=== PATIENT | female | born 1980 | race Caucasian/White ===

== ENCOUNTER 2017-07-04 17:26 | Emergency (ER) | payer OTHER ==
[~2017-07-04] VITALS: Ht 154.9 cm; Wt 98.3 kg
[~2017-07-04 17:26] MED LIST: ACET325; ADVI200C9; ALL220TA; CLEO300C2; MUCI600T; PARO10TA; PHEN12.5; [UNRECOGNIZED DRUG - REMARK]
[2017-07-04 17:31] VITALS: BP 175/93; PULSE 127; RESP 18; TEMP 99.5; O2SAT 98
[2017-07-04] MEDS ORDERED: ALPR.25 PO (17:51)
[2017-07-04] MEDS ORDERED: PARO20TA2 PO (17:51)
[2017-07-04] MEDS ORDERED: DOXE25CA2 PO (17:51)
[2017-07-04 17:52] VITALS: O2SAT 98
[2017-07-04] MEDS ORDERED: SODIUM CHLORIDE 0.9% FLUSH 10 ML FLUSH IV FLUSH PRN (18:00)
--- NOTE | 2017-07-04 18:07 | RADRPT ---
EXAM DATE/TIME: 07/04/2017 17:53 [facility] COMPARISON: No previous studies available for comparison. INDICATIONS : Short of breath. MEDICAL HISTORY : None. SURGICAL HISTORY : None. ENCOUNTER: Initial ACUITY: 1 day PAIN SCORE: 0/10 LOCATION: Bilateral chest FINDINGS: A single view of the chest demonstrates the lungs to be symmetrically aerated without evidence of mas s, infiltrate or effusion. The cardiomediastinal contours are unremarkable. Osseous structures are intact. CONCLUSION: No acute disease. Frank Dave MD on July 04, 2017 at 18:04 Board Certified Radiologist. This report was verified electronically.
[2017-07-04 18:28] LABS: AUTOMATED NEUTROPHIL # 2.7 TH/MM3 (1.8-7.7); BASOPHIL % 0.5 % (0.0-2.0); EOSINOPHIL # 0.1 TH/MM3 (0-0.4); EOSINOPHIL % 1.7 % (0.0-4.0); HEMATOCRIT 34.7 % (35.0-46.0); HEMOGLOBIN 11.8 GM/DL (11.6-15.3); LYMPH % 36.5 % (9.0-44.0); MEAN CELL VOLUME 81.4 FL (80.0-100.0); MEAN CORPUSCULAR HEMOGLOBIN 27.6 PG (27.0-34.0); MEAN CORPUSCULAR HGB CONC 33.9 % (32.0-36.0); MEAN PLATELET VOLUME 9.6 FL (7.0-11.0); MONO % 11.1 % (0.0-8.0); MONOCYTE # 0.6 TH/MM3 (0-0.9); NEUT % 50.2 % (16.0-70.0); PLATELET COUNT 197 TH/MM3 (150-450); RED BLOOD COUNT 4.27 MIL/MM3 (4.00-5.30); RED CELL DISTRIBUTION WIDTH 12.7 % (11.6-17.2); WHITE BLOOD COUNT 5.4 TH/MM3 (4.0-11.0)
[2017-07-04 18:35] LABS: CHLORIDE 104 MEQ/L (98-107); SODIUM (NA) 137 MEQ/L (136-145)
[2017-07-04 18:38] LABS: CALCIUM 9.2 MG/DL (8.5-10.1)
[2017-07-04 18:39] LABS: BICARBONATE 24.3 MEQ/L (21.0-32.0); BLOOD UREA NITROGEN 19 MG/DL (7-18); GLUCOSE,RANDOM 99 MG/DL (74-106)
[2017-07-04 18:42] LABS: ALT (GPT) 38 U/L (10-53); AST (GOT) 23 U/L (15-37); CREATININE 0.51 MG/DL (0.50-1.00); GLOMERULAR FILTRATION RATE 135 ML/MIN (>89)
[2017-07-04 18:44] LABS: TOTAL BILIRUBIN ADULT 0.5 MG/DL (0.2-1.0); TOTAL PROTEIN 7.3 GM/DL (6.4-8.2)
[2017-07-04 18:45] LABS: ALKALINE PHOSPHATASE 82 U/L (45-117)
[2017-07-04 18:48] LABS: BILIRUBIN, URINE NEG (NEG); BLOOD, URINE LARGE (NEG); GLUCOSE,URINE NEG (NEG); KETONE, URINE TRACE mg/dL (NEG); NITRITE,URINE NEG (NEG); PH, URINE 5.5 (5.0-8.5); URINE COLOR YELLOW (YELLW/STRAW); URINE LEUKOCYTE ESTERASE NEG (NEG)
--- NOTE | 2017-07-04 18:56 | PD ---
HPI Chief Complaint: Abnormal Results Time Seen by Provider: 17:43 Travel History International Travel<30 days: No Contact w/Intl Traveler<30days: No Traveled to known affect area: No History of Present Illness HPI The patient's 36 years old and arrives complaining of a sensation of dizziness as well as weakness and headaches. She has had but also feels a racing heart rate. She saw her primary doctor who prescribed her Xanax as well as a thyroid scan and a Holter monitor. The patient denies undergone blood work evaluation. She developed bilateral lower extremity edema for the past 2 days and after calling her primary doctor was advised to come here. She reports dyspnea and shallow breathing without chest pain. No fever or cough. No urinary complaints. PFSH Past Medical History Anemia: Yes Blood Disorders: No Anxiety: Yes Depression: Yes Cancer: No Cardiovascular Problems: No Chemotherapy: No Endocrine: No Immune Disorder: No Musculoskeletal: No Neurologic: No Psychiatric: Yes Reproductive: No Respiratory: No Thyroid Disease: Yes (POSSIBLE GOUITER) Tetanus Vaccination: > 5 Years Influenza Vaccination: No ?: Not LMP: CURRENT : 1 Para: 1 Past Surgical History AICD: No Arteriovenous Shunt: No Genitourinary Surgery: Yes Insulin Pump: No Joint Replacement: No Pacemaker: No Social History Alcohol Use: Yes (SOCIAL) Tobacco Use: No Substance Use: No Allergies-Medications (Allergen,Severity, Reaction): Coded Allergies: No Known Allergies (Verified Allergy, Mild, 07/04/17) Reported Meds & Prescriptions Reported Meds & Active Scripts Active Propranolol (Propranolol HCl) 60 Mg Tab 60 Mg PO Q12HR Reported Doxepin (Doxepin HCl) 25 Mg Cap 25 Mg PO HS Paroxetine (Paroxetine HCl) 20 Mg Tab 20 Mg PO BID Xanax (Alprazolam) 0.25 Mg Tab 0.25 Mg PO Q8H PRN Review of Systems Except as stated in HPI: all other systems reviewed are Neg General / Constitutional: No: Fever Physical Exam Narrative GENERAL: 36 yo F, WNWD, NAD Vital Signs Date Time Temp Pulse Resp B/P (MAP) Pulse Ox O2 Delivery O2 Flow Rate FiO2 07/04/17 17:52 98 Room Air 07/04/17 17:47 121 98 Room Air 07/04/17 17:31 99.5 127 18 175/93 (120) 98 SKIN: Warm and dry. HEAD: Atraumatic. Normocephalic. EYES: Pupils equal and round. No scleral icterus. No injection or drainage. ENT: No nasal bleeding or discharge. Mucous membranes pink and moist. NECK: Trachea midline. No JVD. CARDIOVASCULAR: Tachycardia. Regular rhythm. RESPIRATORY: No accessory muscle use. Clear to auscultation. Breath sounds equal bilaterally. GASTROINTESTINAL: Abdomen soft, non-tender, nondistended. Hepatic and splenic margins not palpable. MUSCULOSKELETAL: Minimal edema about the dorsal feet bilaterally. 2+ DP bilaterally. NEUROLOGICAL: Awake and alert. No obvious cranial nerve deficits. Motor grossly within normal limits. Five out of 5 muscle strength in the arms and legs. Normal speech. PSYCHIATRIC: Appropriate mood and affect; insight and judgment normal. Data Data Last Documented VS Vital Signs Date Time Temp Pulse Resp B/P (MAP) Pulse Ox O2 Delivery O2 Flow Rate FiO2 07/04/17 22:14 113 18 138/67 (90) 98 07/04/17 21:09 Room Air 07/04/17 17:31 99.5 Orders Orders Electrocardiogram (07/04/17 17:49) Complete Blood Count With Diff (07/04/17 17:49) Comprehensive Metabolic Panel (07/04/17 17:49) Creatine Kinase (Cpk) (07/04/17 17:49) Thyroid Stimulating Hormone (07/04/17 17:49) Urinalysis - C+S If Indicated (07/04/17 17:49) Chest, Single Ap (07/04/17 17:49) Ecg Monitoring (07/04/17 17:49) Iv Access Insert/Monitor (07/04/17 17:49) Oximetry (07/04/17 17:49) Sodium Chloride 0.9% Flush (Ns Flush) (07/04/17 18:00) B-Type Natriuretic Peptide (07/04/17 17:49) Us Leg Venous Doppler Bilat (07/04/17 ) Free Thyroxine (T4) (07/04/17 17:49) Sodium Chlor 0.9% 1000 Ml Inj (Ns 1000 M (07/04/17 20:30) Propranolol (Inderal) (07/04/17 21:30) Ed Urine Pregnancytest Poc (07/04/17 21:57) Ed Discharge Order (07/04/17 22:22) Labs Laboratory Tests Test 07/04/17 18:05 07/04/17 18:15 White Blood Count 5.4 TH/MM3 Red Blood Count 4.27 MIL/MM3 Hemoglobin 11.8 GM/DL Hematocrit 34.7 % Mean Corpuscular Volume 81.4 FL Mean Corpuscular Hemoglobin 27.6 PG Mean Corpuscular Hemoglobin Concent 33.9 % Red Cell Distribution Width 12.7 % Platelet Count 197 TH/MM3 Mean Platelet Volume 9.6 FL Neutrophils (%) (Auto) 50.2 % Lymphocytes (%) (Auto) 36.5 % Monocytes (%) (Auto) 11.1 % Eosinophils (%) (Auto) 1.7 % Basophils (%) (Auto) 0.5 % Neutrophils # (Auto) 2.7 TH/MM3 Lymphocytes # (Auto) 2.0 TH/MM3 Monocytes # (Auto) 0.6 TH/MM3 Eosinophils # (Auto) 0.1 TH/MM3 Basophils # (Auto) 0.0 TH/MM3 CBC Comment DIFF FINAL Differential Comment Blood Urea Nitrogen 19 MG/DL Creatinine 0.51 MG/DL Random Glucose 99 MG/DL Total Protein 7.3 GM/DL Albumin 3.0 GM/DL Calcium Level 9.2 MG/DL Alkaline Phosphatase 82 U/L Aspartate Amino Transf (AST/SGOT) 23 U/L Alanine Aminotransferase (ALT/SGPT) 38 U/L Total Bilirubin 0.5 MG/DL Sodium Level 137 MEQ/L Potassium Level 4.1 MEQ/L Chloride Level 104 MEQ/L Carbon Dioxide Level 24.3 MEQ/L Anion Gap 9 MEQ/L Estimat Glomerular Filtration Rate 135 ML/MIN Total Creatine Kinase 47 U/L B-Type Natriuretic Peptide 18 PG/ML Free Thyroxine 4.63 NG/DL Thyroid Stimulating Hormone 3rd Gen LESS THAN 0.005 uIU/ML Urine Collection Type CLEAN CATCH Urine Color YELLOW Urine Turbidity SL CLOUDY Urine pH 5.5 Urine Specific [place] GREATER/EQUAL 1.030 Urine Protein TRACE mg/dL Urine Glucose (UA) NEG mg/dL Urine Ketones TRACE mg/dL Urine Occult Blood LARGE Urine Nitrite NEG Urine Bilirubin NEG Urine Urobilinogen 0.2 MG/DL Urine Leukocyte Esterase NEG Urine RBC 20-24 /hpf Urine WBC 6-8 /hpf Urine Squamous Epithelial Cells > 8 /hpf Urine Amorphous Sediment FEW Urine Mucus MOD /lpf Microscopic Urinalysis Comment CULT NOT INDICATED MDM Medical Decision Making Medical Screen Exam Complete: Yes Emergency Medical Condition: Yes Medical Record Reviewed: Yes Differential Diagnosis anemia, renal failure, DVT, UTI, PNA Narrative Course CBC & BMP Diagram 07/04/17 18:05 Total Protein 7.3, Albumin 3.0 L, Calcium Level 9.2, Alkaline Phosphatase 82, Aspartate Amino Transf (AST/SGOT) 23, Alanine Aminotransferase (ALT/SGPT) 38, Total Bilirubin 0.5 Free T4 is 4.63 TSH is less than 0.005 BNP is 18 The urinalysis shows no UTI Care is negative Patient is elevated thyroid function. The case was discussed with Dr. Meyers. We will send the patient with propranolol. Thyroid iodine uptake study will be ordered. The patient will follow-up with Dr. Meyers next week. Diagnosis Primary Impression: Hyperthyroidism Referrals: DR MEYERS call for appointment Med/Other Pt SpecificInfo: Prescription(s) given Scripts Propranolol (Propranolol) 60 Mg Tab 60 MG PO Q12HR, #60 TAB 0 Refills Prov: Luis Alberto Chen MD 07/04/17 Disposition: 01 DISCHARGE HOME Condition: Stable Luis Alberto Chen MD Jul 04, 2017 18:56
[2017-07-04 18:58] LABS: MUCUS URINE MOD /lpf (OCC)
[2017-07-04 18:59] LABS: AMORPHOUS SEDIMENT, URINE FEW
[2017-07-04 19:00] LABS: SQUAMOUS EPITHELIAL CELL URINE > 8 /hpf (0-5)
[2017-07-04 19:02] VITALS: BP 114/70; PULSE 123; RESP 16; O2SAT 95
--- NOTE | 2017-07-04 19:49 | RADRPT ---
EXAM DATE/TIME: 07/04/2017 19:13 [facility] COMPARISON: No previous studies available for comparison. INDICATIONS : Bilateral leg swelling. MEDICAL HISTORY : Thyroid disease. Depression. Anxiety. Anemia. SURGICAL HISTORY : Genitourinary surgery. ENCOUNTER: Initial ACUITY: 1 day PAIN SCORE: 4/10 LOCATION: Bilateral leg. TECHNIQUE: Venous ultrasound of the left and right leg was performed from the inguinal ligament to the proximal calf. Real-time, color Doppler and spectral tracing, compression and augmentation techniques were us ed. FINDINGS: RIGHT LEG: There is normal compressibility of the deep venous system from the inguinal region to the proximal ca lf. No echogenic clot is seen in the lumen of the common femoral, femoral, popliteal, and posterior tibial veins. There is a normal response of the venous system to proximal and distal augmentation an d respiration. LEFT LEG: There is normal compressibility of the deep venous system from the inguinal region to the proximal ca lf. No echogenic clot is seen in the lumen of the common femoral, femoral, popliteal, and posterior tibial veins. There is a normal response of the venous system to proximal and distal augmentation an d respiration. CONCLUSION: No evidence of deep venous thrombosis. Frank Dave MD on July 04, 2017 at 19:47 Board Certified Radiologist. This report was verified electronically.
[2017-07-04] MEDS ORDERED: SODIUM CHLOR 0.9% 1000 ML INJ 1,000 ML IV ONE (20:30)
[2017-07-04 20:54] LABS: FREE T4 4.63 NG/DL (0.76-1.46)
[2017-07-04 21:09] VITALS: BP 136/66; PULSE 107; RESP 16; O2SAT 99
[2017-07-04] MEDS ORDERED: PROPRANOLOL HCL 20 MG TAB PO ONE (21:30)
[2017-07-04] MEDS ORDERED: PROP60TA PO (21:56)
[2017-07-04 22:14] VITALS: BP 138/67
--- NOTE | 2017-07-05 21:29 | EKG ---
Date Performed: 07/04/2017 Time Performed: 18:03:25 PTAGE: 36 years EKG: SINUS TACHYCARDIA WITH SHORT VA INTERVAL POSSIBLE LEFT ATRIAL ENLARGEMENT ABNORMAL RHYTHM E CG PREVIOUS TRACING : 11/25/2006 22.14 Since the previous tracing, no significant change noted DOCTOR: Tyron Ray Interpretating Date/Time 07/05/2017 21:28:43
== END 2017-07-04 22:36 | disposition home or self-care (01) ==
LOC: PHED 17:26
DX: E05.90 Thyrotoxicosis, unspecified without thyrotoxic crisis or storm (principal); R00.0 Tachycardia, unspecified; R06.00 Dyspnea, unspecified; R60.0 Localized edema; R51 Headache; F41.8 Other specified anxiety disorders
CPT/HCPCS: 71045; 80053; 81001; 82550; 83880; 84439; 84443; 84703; 85025; 93005; 93970; 96360; 99285; J7030